=== PATIENT | female | born 1955 | race Two or more races ===

== ENCOUNTER 2017-11-13 07:45 | Outpatient (CLI) | payer OTHER | END 2017-11-13 07:48 | disposition home or self-care (01) | LOC: RX STUDY 07:45 | DX: R13.14 Dysphagia, pharyngoesophageal phase (principal) ==

== ENCOUNTER 2017-11-13 07:50 | Outpatient (CLI) | payer OTHER | END 2017-11-13 07:52 | disposition home or self-care (01) | LOC: RAD 07:50 | DX: I10 Essential (primary) hypertension (principal) ==

== ENCOUNTER 2017-11-13 07:53 | Outpatient (CLI) | payer OTHER | END 2017-11-13 07:56 | disposition home or self-care (01) | LOC: MAMO-SONO 07:53 | DX: Z12.31 Encounter for screening mammogram for malignant neoplasm of breast (principal); Z87.898 Personal history of other specified conditions; R22.1 Localized swelling, mass and lump, neck; R13.14 Dysphagia, pharyngoesophageal phase ==